=== PATIENT | female | born 1950 | race Caucasian/White ===

== ENCOUNTER 2017-12-26 09:04 | Day surgery (SDC) | payer MEDICARE, BC ==
[~2017-12-26 09:04] MED LIST: CEFAZOLIN 1 GM INJ; PROPOFOL 200 MG INJ
[2017-12-26] MEDS: MIDAZOLAM 1 MG/ML 2 ML INJ IV (11:11)
[2017-12-26] MEDS ORDERED: MIDAZOLAM 1 MG/ML 2 ML INJ (12:14)
[2017-12-26] MEDS ORDERED: PROPOFOL 20 ML (12:14)
[2017-12-26] MEDS ORDERED: FENTAnyl 50 MCG/ML VIAL (12:14)
[2017-12-26] MEDS ORDERED: GLYCOPYRROLATE 0.4 MG INJ (12:14)
[2017-12-26] MEDS ORDERED: LIDOCAINE 2% (SDV) 5 ML INJ (12:14)
[2017-12-26] MEDS ORDERED: NEOSTIGMINE 3 MG/3 ML SYRINGE (12:14)
[2017-12-26] MEDS ORDERED: ROCURONIUM 50 MG INJ (12:14)
[2017-12-26] MEDS ORDERED: DEXAMETHASONE 4 MG/ML 1 ML INJ (12:20)
[2017-12-26] MEDS ORDERED: ONDANSETRON 4 MG INJ ×2 (12:21→14:38)
[2017-12-26] MEDS ORDERED: morphine 2 MG INJ IV (13:00)
[2017-12-26] MEDS: ROPIVACAINE 0.5 % 30 ML VIAL INJ (13:53)
[2017-12-26] MEDS: NEOMYC/POLYMYX/BACIT 30 GM OINT TOP (13:53)
[2017-12-26] MEDS ORDERED: KETOROLAC 30 MG INJ (14:14)
[2017-12-26] MEDS ORDERED: HYDROmorphONE 1 MG/ML SYG (14:38)
[2017-12-26] MEDS ORDERED: MEPERIDINE 25 MG INJ (14:38)
[2017-12-26] MEDS ORDERED: NEOMYC/POLYMYX/BACIT 30 GM OINT (14:54)
[2017-12-26] MEDS ORDERED: ROPIVACAINE 0.5 % 30 ML VIAL (14:54)
[2017-12-26] MEDS: HYDROmorphONE 1 MG/ML SYG IV (14:56)
[2017-12-26] MEDS ORDERED: morphine (1 MG/ML) 10ML SYRINGE IV (15:00)
[2017-12-26] MEDS ORDERED: LABETALOL HCL 20MG INJ IV (15:00)
[2017-12-26] MEDS ORDERED: HALOPERIDOL 5 MG INJ IV (15:00)
[2017-12-26] MEDS ORDERED: MIDAZOLAM 1 MG/ML 2 ML INJ IV (15:00)
[2017-12-26] MEDS ORDERED: FENTAnyl 50 MCG/ML VIAL IV ×2 (15:00)
[2017-12-26] MEDS ORDERED: TRIMETHOBENZAMIDE 100 MG/ML VIAL IM (15:00)
[2017-12-26] MEDS ORDERED: ALBUMIN HUMAN 5% 250 ML IV (15:00)
[2017-12-26] MEDS ORDERED: NALOXONE (0.4 MG/ML) INJ IV (15:00)
[2017-12-26] MEDS ORDERED: DIPHENHYDRAMINE 50 MG INJ IV (15:00)
[2017-12-26] MEDS ORDERED: OXYCODONE/ACETAMINOPHEN (5/325) TAB PO ×2 (15:00)
[2017-12-26] MEDS ORDERED: METOCLOPRAMIDE 10 MG INJ IV (15:00)
[2017-12-26] MEDS ORDERED: HYDROmorphONE 1 MG/5 ML IV SYRINGE IV ×3 (15:00→15:13)
[2017-12-26] MEDS ORDERED: ALBUTEROL 0.083% (NEB) 2.5 MG/3 ML AMP HHN (15:00)
[2017-12-26] MEDS ORDERED: EPHEDrine SULFATE 50 MG/5 ML SYG IV (15:00)
[2017-12-26] MEDS: ONDANSETRON 4 MG INJ IV (15:12)
[2017-12-26] MEDS: MEPERIDINE 25 MG INJ IV (15:12)
[2017-12-26] MEDS: HYDROmorphONE 1 MG/5 ML IV SYRINGE IV (15:17)
[2017-12-26] MEDS ORDERED: hydrALAzine 20 MG INJ (15:18)
[2017-12-26] MEDS: hydrALAzine 20 MG INJ IV (15:33)
== END 2017-12-26 17:07 | disposition home or self-care (01) ==
LOC: SDS 09:04
DX: M20.22 Hallux rigidus, left foot (principal); I10 Essential (primary) hypertension; E78.5 Hyperlipidemia, unspecified; I25.10 Atherosclerotic heart disease of native coronary artery without angina pectoris
CPT/HCPCS: 28291; 73630-LT; 82962